=== PATIENT | female | born 1935 | race Asian ===

== ENCOUNTER 2023-09-14 15:56 | Inpatient (IN) | payer MEDICARE, OTHER ==
[~2023-09-14] VITALS: Ht 154.9 cm; Wt 50.9 kg
[2023-09-14 17:00] LABS: BASOPHILS % (AUTO) 0.4 % (0.0-2.0); EOSINOPHILS % (AUTO) 0.5 % (1.0-6.0); HEMATOCRIT 33.6 % (36-46); HEMOGLOBIN 10.8 g/dL (12.0-16.0); LYMPHOCYTES # (AUTO) 0.6 K/uL (1.0-4.8); LYMPHOCYTES % (AUTO) 4.2 % (22.0-44.0); MEAN CORPUSCULAR HEMOGLOBIN 33.9 pg (26.0-34.0); MEAN CORPUSCULAR VOLUME 106 fL (80-100); MONOCYTES # (AUTO) 0.8 K/uL (0.1-1.0); MONOCYTES % (AUTO) 5.6 % (2.0-9.0); NEUTROPHILS # (AUTO) 13.6 K/uL (1.8-7.7); PLATELET COUNT (AUTO) 153 K/uL (150-450); RED BLOOD CELL COUNT(AUTO) 3.18 MIL/uL (4.00-5.20); RED CELL DISTRIBUTION WIDTH 14.7 % (11.5-14.5); WHITE BLOOD COUNT (AUTO) 15.2 K/uL (4.5-11.0)
[2023-09-14 17:08] LABS: NEUTROPHILS % (AUTO) 89.3 % (40.0-70.0)
[2023-09-14] MEDS: ONDANSETRON HCL 4 MG/2 ML VIAL IVP ONE (17:09)
[2023-09-14] MEDS: CALCIUM GLUCONATE 100 MG/ML 10 ML IVP ONE (17:09)
[2023-09-14] MEDS: DILTIAZEM HCL 5 MG/ML 5 ML VIAL IVP ONE (17:09)
[2023-09-14 17:12] LABS: INR 1.1 (0.9-1.1); PROTHROMBIN TIME 11.3 SEC (9.4-11.6)
[2023-09-14] MEDS: DIGOXIN 250 MCG/ML 2 ML AMP IVP ONE (17:13)
[2023-09-14 17:15] LABS: ANION GAP 11 mmol/L (8-16); CALCIUM, TOTAL 9.1 mg/dL (8.8-10.5); CARBON DIOXIDE 26 mmol/L (22-29); CHLORIDE 100 mmol/L (98-107); CREATININE 1.07 mg/dL (0.60-1.30); GLOMERULAR FILTR. RATE CALC 49 mL/min (>60); GLUCOSE,RANDOM 151 mg/dL (70-110); POTASSIUM 4.4 mmol/L (3.5-5.1); SODIUM SERUM 137 mmol/L (136-145); UREA NITROGEN, BLOOD 35 mg/dL (7-18)
[2023-09-14 17:18] LABS: B-TYPE NATRIURETIC PEPTIDE 1200 pg/mL (0-100)
[2023-09-14 17:20] LABS: TROPONIN I-HIGH SENSITIVITY 30 ng/L (<51)
[2023-09-14 17:22] LABS: ALANINE AMINOTRANSFERASE 56 U/L (12-78); ALBUMIN 3.6 g/dL (3.4-5.0); ALKALINE PHOSPHATASE 102 U/L (46-116); ASPARTATE AMINOTRANSFERASE 35 U/L (15-37); BILIRUBIN,TOTAL 1.5 mg/dL (0.1-1.0); LIPASE 24 U/L (16-77)
[2023-09-14 17:31] LABS: LACTIC ACID 1.4 mmol/L (0.4-2.0)
[2023-09-14 17:51] LABS: RBC MORPHOLOGY COMMENT ABNORMAL RBC MORPH
[2023-09-14] MEDS ORDERED: ACETAMINOPHEN 325 MG TABLET PO PRN (18:15)
[2023-09-14 18:43] LABS: COVID AG,FIA SOURCE NASAL SWAB
[2023-09-14 19:09] LABS: SARS-COV2 (COVID) ANTIGEN,FIA Negative (Negative)
[2023-09-14] MEDS: METOPROLOL TARTRATE 25 MG TABLET PO ONE (19:28)
[2023-09-14 21:15] VITALS: BP 147/75; PULSE 74; RESP 18; TEMP 97.8
[2023-09-14] MEDS: FUROSEMIDE 20 MG TABLET PO SCH (22:09)
[2023-09-14] MEDS: DOCUSATE SODIUM 100 MG CAPSULE PO SCH (22:09)
[2023-09-14] MEDS: APIXABAN 5 MG TABLET PO SCH (22:10)
[2023-09-14] MEDS: ONDANSETRON HCL 4 MG/2 ML VIAL IVP PRN (22:10)
[2023-09-14] MEDS: CARVEDILOL 6.25 MG TABLET PO SCH (22:10)
[2023-09-14] MEDS ORDERED: AMLO-258 PO (22:36)
[2023-09-14] MEDS ORDERED: METO-325 PO (22:36)
[2023-09-14] MEDS ORDERED: PANT-31 PO (22:36)
[2023-09-14] MEDS ORDERED: TELM40 PO (22:36)
[2023-09-14] MEDS ORDERED: CARB1DRO24 OU (22:36)
[2023-09-14] MEDS ORDERED: ALLO-45 PO (22:36)
[2023-09-14] MEDS ORDERED: LEVO100 PO (22:36)
[2023-09-15] VITALS (7 sets, daily range): BP systolic 124–144; BP diastolic 54–95; PULSE 67–101; RESP 18–20; TEMP 97.7–99.2
[2023-09-15 05:04] LABS: APPEARANCE,URINE CLEAR (CLEAR); BILIRUBIN,URINE NEGATIVE (NEGATIVE); COLOR,URINE DARK YELLOW (YELLOW); GLUCOSE, URINE (UA) NEGATIVE (NEGATIVE); KETONES,URINE NEGATIVE (NEGATIVE); LEUKOCYTE ESTERASE ,URINE LARGE (NEGATIVE); NITRATE,URINE NEGATIVE (NEGATIVE); OCCULT BLOOD,URINE NEGATIVE (NEGATIVE); PH,URINE 5.5 (5.0-8.0); PROTEIN,URINE 100-200,SEE CONFIRM mg/dL (NEGATIVE); UROBILINOGEN,URINE <=1.0 mg/dL (<=1.0)
[2023-09-15 05:11] LABS: BACTERIA,URINE Few /HPF (None Seen); RBC,URINE None Seen /HPF (0-2); SULFOSALICYLIC ACID,URINE 1+ (Negative)
[2023-09-15 05:12] LABS: SQUAMOUS EPITHELIAL CELL,UR Moderate /LPF (None Seen)
[2023-09-15 06:48] LABS: BASOPHILS % (AUTO) 0.3 % (0.0-2.0); EOSINOPHILS % (AUTO) 0.7 % (1.0-6.0); HEMATOCRIT 28.1 % (36-46); HEMOGLOBIN 9.3 g/dL (12.0-16.0); LYMPHOCYTES # (AUTO) 0.7 K/uL (1.0-4.8); LYMPHOCYTES % (AUTO) 8.5 % (22.0-44.0); MEAN CORPUSCULAR HGB CONC 33.2 G/dL (31.0-37.0); MEAN CORPUSCULAR VOLUME 106 fL (80-100); MONOCYTES # (AUTO) 0.6 K/uL (0.1-1.0); MONOCYTES % (AUTO) 6.7 % (2.0-9.0); NEUTROPHILS # (AUTO) 7.3 K/uL (1.8-7.7); NEUTROPHILS % (AUTO) 83.8 % (40.0-70.0); PLATELET COUNT (AUTO) 130 K/uL (150-450); RED BLOOD CELL COUNT(AUTO) 2.66 MIL/uL (4.00-5.20); RED CELL DISTRIBUTION WIDTH 14.2 % (11.5-14.5); WHITE BLOOD COUNT (AUTO) 8.7 K/uL (4.5-11.0)
[2023-09-15 07:53] LABS: CALCIUM, TOTAL 8.6 mg/dL (8.8-10.5); CREATININE 1.14 mg/dL (0.60-1.30); POTASSIUM 4.6 mmol/L (3.5-5.1)
[2023-09-15 08:04] LABS: TROPONIN I-HIGH SENSITIVITY 52 ng/L (<51)
[2023-09-15] MEDS: FAMOTIDINE 20 MG TABLET PO SCH (08:36)
[2023-09-15 12:48] LABS: RBC MORPHOLOGY COMMENT ABNORMAL RBC MORPH
[2023-09-15] MEDS ORDERED: MECLIZINE HCL 25 MG TABLET PO PRN (13:45)
[2023-09-15 15:34] LABS: TROPONIN I-HIGH SENSITIVITY 46 ng/L (<51)
[2023-09-15] MEDS ORDERED: SODIUM CHLORIDE 0.9% 500 ML IV ONE (16:26)
[2023-09-15] MEDS: CefTRIAXone 1 GM/DEXTROSE 50 ML IV SCH (17:00)
[2023-09-15] MEDS ORDERED: HEPARIN SODIUM,PORCINE 5,000 UNITS/ML VIAL IVP PRN ×2 (17:30)
[2023-09-15 19:02] LABS: BASOPHILS % (AUTO) 0.4 % (0.0-2.0); EOSINOPHILS % (AUTO) 0.9 % (1.0-6.0); HEMOGLOBIN 9.7 g/dL (12.0-16.0); LYMPHOCYTES # (AUTO) 0.8 K/uL (1.0-4.8); LYMPHOCYTES % (AUTO) 11.7 % (22.0-44.0); MEAN CORPUSCULAR HEMOGLOBIN 34.4 pg (26.0-34.0); MEAN CORPUSCULAR HGB CONC 32.3 G/dL (31.0-37.0); MEAN CORPUSCULAR VOLUME 107 fL (80-100); MONOCYTES # (AUTO) 0.5 K/uL (0.1-1.0); MONOCYTES % (AUTO) 7.2 % (2.0-9.0); NEUTROPHILS # (AUTO) 5.7 K/uL (1.8-7.7); NEUTROPHILS % (AUTO) 79.8 % (40.0-70.0); PLATELET COUNT (AUTO) 137 K/uL (150-450); RED BLOOD CELL COUNT(AUTO) 2.82 MIL/uL (4.00-5.20); RED CELL DISTRIBUTION WIDTH 14.4 % (11.5-14.5); WHITE BLOOD COUNT (AUTO) 7.2 K/uL (4.5-11.0)
[2023-09-15 19:16] LABS: INR 1.1 (0.9-1.1); PROTHROMBIN TIME 11.5 SEC (9.4-11.6)
[2023-09-15 19:17] LABS: PLATELET MORPHOLOGY COMMENT LARGE PLTS PRESENT; RBC MORPHOLOGY COMMENT ABNORMAL RBC MORPH
[2023-09-15] MEDS: HEPARIN SODIUM 25000 UNITS/D5W 250 ML IV PRN (19:58)
[2023-09-15] MEDS ORDERED: APIXABAN 2.5 MG TABLET PO SCH (21:00)
[2023-09-16 04:58] VITALS: BP 127/59; PULSE 68; RESP 19; TEMP 98.5
[2023-09-16 06:36] LABS: BASOPHILS % (AUTO) 0.7 % (0.0-2.0); EOSINOPHILS % (AUTO) 0.7 % (1.0-6.0); HEMATOCRIT 29.4 % (36-46); HEMOGLOBIN 9.6 g/dL (12.0-16.0); LYMPHOCYTES # (AUTO) 0.7 K/uL (1.0-4.8); MEAN CORPUSCULAR HEMOGLOBIN 34.9 pg (26.0-34.0); MEAN CORPUSCULAR HGB CONC 32.8 G/dL (31.0-37.0); MEAN CORPUSCULAR VOLUME 107 fL (80-100); MONOCYTES # (AUTO) 0.4 K/uL (0.1-1.0); MONOCYTES % (AUTO) 4.5 % (2.0-9.0); NEUTROPHILS # (AUTO) 7.1 K/uL (1.8-7.7); PLATELET COUNT (AUTO) 146 K/uL (150-450); RED BLOOD CELL COUNT(AUTO) 2.76 MIL/uL (4.00-5.20); RED CELL DISTRIBUTION WIDTH 14.3 % (11.5-14.5); WHITE BLOOD COUNT (AUTO) 8.2 K/uL (4.5-11.0)
[2023-09-16 06:44] LABS: CALCIUM, TOTAL 8.5 mg/dL (8.8-10.5); CREATININE 1.19 mg/dL (0.60-1.30); POTASSIUM 4.2 mmol/L (3.5-5.1)
[2023-09-16 07:01] LABS: NEUTROPHILS % (AUTO) 86.1 % (40.0-70.0)
[2023-09-16 07:48] LABS: RBC MORPHOLOGY COMMENT ABNORMAL RBC MORPH
[2023-09-16 09:06] VITALS: BP 141/78; PULSE 91; RESP 20; TEMP 98.2
[2023-09-16 11:40] VITALS: BP 100/56; PULSE 78; RESP 18; TEMP 98
[2023-09-16] MEDS ORDERED: LIDOCAINE 2% VISCOUS 15 ML SOLUTION UDCUP ONE (14:54)
[2023-09-16] MEDS ORDERED: FentaNYL CITRATE PF 100 MCG/2 ML VIAL ONE (14:55)
[2023-09-16] MEDS ORDERED: MIDAZOLAM HCL 2 MG/2 ML VIAL ONE (14:55)
[2023-09-16] MEDS: MIDAZOLAM HCL 2 MG/2 ML VIAL IVP ONE (15:34)
[2023-09-16] MEDS: FentaNYL CITRATE PF 100 MCG/2 ML VIAL IVP ONE (15:34)
[2023-09-16] MEDS: SODIUM CHLORIDE 0.9% 500 ML IV ONE (15:39)
[2023-09-16] MEDS: LIDOCAINE 2% VISCOUS 15 ML SOLUTION UDCUP PO ONE (15:41)
[2023-09-16 15:56] VITALS: BP 133/61; PULSE 71
[2023-09-16 16:30] VITALS: BP 117/55; PULSE 72; RESP 18; TEMP 98.5
[2023-09-16 20:00] VITALS: BP 141/68; PULSE 74; RESP 18
[2023-09-17] VITALS (14 sets, daily range): BP systolic 119–160; BP diastolic 48–83; PULSE 65–92; RESP 18–19; TEMP 98.1–98.2
[2023-09-17 06:32] LABS: BASOPHILS % (AUTO) 0.6 % (0.0-2.0); EOSINOPHILS % (AUTO) 0.6 % (1.0-6.0); HEMATOCRIT 30.8 % (36-46); HEMOGLOBIN 10.1 g/dL (12.0-16.0); LYMPHOCYTES # (AUTO) 0.8 K/uL (1.0-4.8); LYMPHOCYTES % (AUTO) 12.3 % (22.0-44.0); MEAN CORPUSCULAR HEMOGLOBIN 34.9 pg (26.0-34.0); MEAN CORPUSCULAR HGB CONC 32.8 G/dL (31.0-37.0); MEAN CORPUSCULAR VOLUME 106 fL (80-100); MONOCYTES # (AUTO) 0.5 K/uL (0.1-1.0); MONOCYTES % (AUTO) 6.9 % (2.0-9.0); NEUTROPHILS # (AUTO) 5.5 K/uL (1.8-7.7); NEUTROPHILS % (AUTO) 79.6 % (40.0-70.0); PLATELET COUNT (AUTO) 147 K/uL (150-450); RED CELL DISTRIBUTION WIDTH 13.9 % (11.5-14.5); WHITE BLOOD COUNT (AUTO) 6.9 K/uL (4.5-11.0)
[2023-09-17 06:44] LABS: ALBUMIN 2.9 g/dL (3.4-5.0); BILIRUBIN,TOTAL 0.6 mg/dL (0.1-1.0); CALCIUM, TOTAL 8.4 mg/dL (8.8-10.5); CREATININE 0.95 mg/dL (0.60-1.30); TOTAL PROTEIN, SERUM 7.1 g/dL (6.4-8.2)
[2023-09-17] MEDS: MethylPREDNISolone SOD SUCC 125 MG/2 ML VIAL IVP STA (13:50)
[2023-09-17] MEDS ORDERED: HEPARIN SODIUM 1000 UNITS/NS 1,000 ML ONE (16:02)
[2023-09-17] MEDS ORDERED: SODIUM BICARBONATE 50 MEQ/50 ML VIAL ONE (16:02)
[2023-09-17] MEDS ORDERED: FentaNYL CITRATE PF 100 MCG/2 ML VIAL ONE (16:02)
[2023-09-17] MEDS ORDERED: LIDOCAINE/PF 1% 30 ML VIAL ONE (16:02)
[2023-09-17] MEDS ORDERED: MIDAZOLAM HCL 2 MG/2 ML VIAL ONE (16:02)
[2023-09-17] MEDS ORDERED: IOHEXOL 300 MG/ML 100 ML VIAL ONE (16:02)
[2023-09-17] MEDS ORDERED: NITROGLYCERIN 50 MG/D5% WATER 250 ML ONE (16:07)
[2023-09-17] MEDS ORDERED: VERAPAMIL HCL 2.5 MG/ML 2 ML VIAL ONE (16:07)
[2023-09-17] MEDS ORDERED: DiphenhydrAMINE HCL 50 MG/ML VIAL ONE (16:09)
[2023-09-17] MEDS: IOHEXOL 300 MG/ML 100 ML VIAL IARTER ONE (16:42)
[2023-09-17] MEDS: LIDOCAINE 1% 30 ML/SOD BICARB 8.4% 4 ML SQ ONE (16:47)
[2023-09-17] MEDS: DiphenhydrAMINE HCL 50 MG/ML VIAL IVP ONE (16:47)
[2023-09-17] MEDS: FentaNYL CITRATE PF 100 MCG/2 ML VIAL IVP ONE (16:47)
[2023-09-17] MEDS: VERAPAMIL HCL 2.5 MG/ML 2 ML VIAL IARTER ONE (16:48)
[2023-09-17] MEDS: SODIUM CHLORIDE 0.9% 500 ML IV ONE (16:48)
[2023-09-17] MEDS: HEPARIN SODIUM,PORCINE 1,000 UNITS/ML 10 ML VIAL IARTER ONE ×2 (16:48→17:59)
[2023-09-17] MEDS: NITROGLYCERIN/D5W 50 MG/250 ML IV BOTTLE IARTER ONE (16:50)
[2023-09-17] MEDS: HEPARIN SODIUM 2,000 UNITS in HEPARIN SODIUM 1000 UNITS/NS 1,000 ML IARTER ONE (16:55)
[2023-09-17] MEDS ORDERED: ADENOSINE 3 MG/ML 2 ML VIAL IVP ONE (17:06)
[2023-09-17] MEDS: ADENOSINE 3 MG/ML 2 ML VIAL IVP ONE (17:58)
[2023-09-17] MEDS: APIXABAN 2.5 MG TABLET PO SCH (20:37)
[2023-09-18 01:16] VITALS: BP 135/91; PULSE 108; RESP 18; TEMP 97.1
[2023-09-18 01:28] VITALS: BP 108/63; PULSE 83; RESP 18; TEMP 97.4
[2023-09-18 05:19] VITALS: BP 137/75; PULSE 94; RESP 18; TEMP 96.3
[2023-09-18 08:00] VITALS: BP 142/64; PULSE 68; RESP 19; TEMP 98.1
[2023-09-18 08:47] LABS: BASOPHILS % (AUTO) 0.3 % (0.0-2.0); EOSINOPHILS % (AUTO) 0.2 % (1.0-6.0); HEMATOCRIT 33.3 % (36-46); HEMOGLOBIN 10.6 g/dL (12.0-16.0); LYMPHOCYTES # (AUTO) 0.7 K/uL (1.0-4.8); LYMPHOCYTES % (AUTO) 11.2 % (22.0-44.0); MEAN CORPUSCULAR HEMOGLOBIN 33.9 pg (26.0-34.0); MEAN CORPUSCULAR HGB CONC 31.8 G/dL (31.0-37.0); MEAN CORPUSCULAR VOLUME 107 fL (80-100); MONOCYTES # (AUTO) 0.5 K/uL (0.1-1.0); NEUTROPHILS % (AUTO) 80.3 % (40.0-70.0); PLATELET COUNT (AUTO) 160 K/uL (150-450); RED BLOOD CELL COUNT(AUTO) 3.11 MIL/uL (4.00-5.20); WHITE BLOOD COUNT (AUTO) 6.2 K/uL (4.5-11.0)
[2023-09-18 08:49] LABS: RBC MORPHOLOGY COMMENT ABNORMAL RBC MORPH
[2023-09-18 09:20] LABS: ALBUMIN 2.9 g/dL (3.4-5.0); BILIRUBIN,TOTAL 0.5 mg/dL (0.1-1.0); CALCIUM, TOTAL 8.6 mg/dL (8.8-10.5); CREATININE 0.95 mg/dL (0.60-1.30); POTASSIUM 3.9 mmol/L (3.5-5.1); TOTAL PROTEIN, SERUM 7.4 g/dL (6.4-8.2)
[2023-09-19] MEDS ORDERED: LEVOTHYROXINE SODIUM 75 MCG TABLET PO SCH (06:30)
== END 2023-09-18 14:55 | DRG 286 ==
LOC: EMS 15:56 → 5S 18:51
PROVIDERS: ADMIT Internal Medicine; ATTEND Internal Medicine
PROC: 4A023N8 Measurement of Cardiac Sampling and Pressure, Bilateral, Percutaneous Approach (ICD-10-PCS; principal; 2023-09-17)
PROC: B2111ZZ Fluoroscopy of Multiple Coronary Arteries using Low Osmolar Contrast (ICD-10-PCS; 2023-09-17)
PROC: 4A033BC Measurement of Arterial Pressure, Coronary, Percutaneous Approach (ICD-10-PCS; 2023-09-17)
DX: I11.0 Hypertensive heart disease with heart failure (principal); I50.33 Acute on chronic diastolic (congestive) heart failure; N39.0 Urinary tract infection, site not specified; I48.20 Chronic atrial fibrillation, unspecified; I27.20 Pulmonary hypertension, unspecified; E03.9 Hypothyroidism, unspecified; I07.1 Rheumatic tricuspid insufficiency; D63.8 Anemia in other chronic diseases classified elsewhere; Z20.822 Contact with and (suspected) exposure to COVID-19; K21.9 Gastro-esophageal reflux disease without esophagitis; D72.829 Elevated white blood cell count, unspecified; Z88.2 Allergy status to sulfonamides; Z91.041 Radiographic dye allergy status; Z79.899 Other long term (current) drug therapy
CPT/HCPCS: 71045; 80048; 80053; 81001; 81002; 83605; 83690; 83880; 84443; 84484; 85025; 85610; 85730; 87086; 87186; 93005; 93306; 93312; 93460; 97116; 97162; 97530; 99285; J0153; J0610; J0696; J1160; J1200; J1644; J2250; J2405; J2919; J3010; J3490; J7040; Q9967; 36415-L1; 36415-TC; Z7610